=== PATIENT | male | born 1955 | race Caucasian/White ===

== ENCOUNTER → 2018-04-10 07:52 | Outpatient (CLI) | payer OTHER, SELFPAY ==
[2018-04-10 09:35] LABS: Cholesterol 102 mg/dL (140-199); HDL Cholesterol 58 mg/dL (40-60); LDL Cholesterol Calculated 37 mg/dL (<100); Triglycerides 34 mg/dL (35-150)
== END ==
PROVIDERS: Family Provider Registered Nurse Diabetes Educator; PCP Registered Nurse Diabetes Educator; Visit Provider Internal Medicine Cardiovascular Disease
DX: I25.10 Atherosclerotic heart disease of native coronary artery without angina pectoris (principal); I25.84 Coronary atherosclerosis due to calcified coronary lesion; Z13.220 Encounter for screening for lipoid disorders
CPT/HCPCS: 36415; 80061

== ENCOUNTER → 2019-01-09 11:03 | Outpatient (CLI) | payer OTHER, SELFPAY ==
[2019-01-09 12:25] LABS: Cholesterol 118 mg/dL (140-199); HDL Cholesterol 46 mg/dL (40-60); LDL Cholesterol Calculated 64 mg/dL (<100); Triglycerides 41 mg/dL (35-150)
== END ==
PROVIDERS: PCP Registered Nurse Diabetes Educator; Visit Provider Internal Medicine Cardiovascular Disease
DX: I25.10 Atherosclerotic heart disease of native coronary artery without angina pectoris (principal); I25.84 Coronary atherosclerosis due to calcified coronary lesion; R94.39 Abnormal result of other cardiovascular function study
CPT/HCPCS: 36415; 80061

== ENCOUNTER → 2020-06-29 09:05 | Outpatient (CLI) | payer OTHER, SELFPAY ==
[2020-06-29 11:57] LABS: COVID19 -Nasal RAPID Negative (Negative)
== END ==
PROVIDERS: PCP Registered Nurse Diabetes Educator; Visit Provider Specialist
DX: Z20.822 Contact with and (suspected) exposure to COVID-19 (principal)
CPT/HCPCS: 87635; C9803

== ENCOUNTER 2020-06-30 08:52 | Day surgery (SDC) | payer OTHER, SELFPAY ==
[2020-06-30 09:28] VITALS: BP 126/83; PULSE 73; RESP 13; TEMP 36.4; O2SAT 100; BMI 22.8
--- NOTE | 2020-06-30 10:21 | PM.PREOP ---
Pre-operative Note COVID-19 COVID-19 status: Negative Result date/Date tested (Pos, Neg/Pending): 06/29/20 Interval Note History & Physical reviewed/Exam performed by Physician: Yes Changes to H&P: No ASA Class (for procedural sedation): III
[2020-06-30] MEDS: LACTATED RINGERS 1,000 ML 200 ML IV (10:25)
[2020-06-30] MEDS: MIDAZOLAM 5 MG/5 ML VIAL IV (11:04)
[2020-06-30] MEDS: fentaNYL 250 MCG/5 ML INJ IV (11:04)
--- NOTE | 2020-06-30 11:24 | PM.OP.ENDO ---
Operative Date/Time/Diagnoses Date of procedure: 06/30/20 Time of procedure: 11:24 Pre-op diagnosis: Marked change in bowel habits Post-op diagnosis: same (Extensive sigmoid diverticulosis with stricture) Procedure & Clinicians Study performed: Colonoscopy Same procedure as scheduled: Yes Indications: Determine cause of new onset change in bowel habits Surgeon: Edy Bhardwaj Procedure Notes SCOAP/Timeout: Performed Procedure in detail: The patient was placed in the left lateral decubitus position and underwent IV sedation directed by the surgeon consisting of fentanyl and Versed. Digital exam was unremarkable. I could not feel his prostate.. The scope was inserted and advanced through the rectum into the sigmoid. There was extensive sigmoid diverticulosis with strictures and tortuosity making negotiating through this area very difficult. We slowly made our way through and reached the descending transverse and ascending colon. The patient had additional scattered diverticuli throughout the colon.. The cecum was reached identified by the ileocecal valve and the appendiceal opening. The scope was gradually brought out. No Polyps were found. The scope ultimately was retroflexed in the rectum. The appearance was normal. The scope was removed and the patient tolerated the procedure well. Scope withdrawal time: 10 minutes Sedation minutes: 49 Findings: diverticulosis (With stricture and tortuosity. No active inflammation seen however.) Specimen(s): none sent Complications: none Post-procedure Recommendations: Colonscopy in 10 years Follow up: as needed (Follow-up by phone) Disposition: PACU
[2020-06-30 11:26] VITALS: BP 116/71; PULSE 80; RESP 14; TEMP 36.7; O2SAT 99
[2020-06-30 11:30] VITALS: BP 121/72; PULSE 67; RESP 14; O2SAT 100
[2020-06-30 11:36] VITALS: BP 117/68; PULSE 71; RESP 16; TEMP 36.8; O2SAT 100
[2020-06-30 12:00] VITALS: BP 123/56; PULSE 61; RESP 17; TEMP 36.5; O2SAT 97
== END 2020-06-30 12:09 | disposition home or self-care (01) ==
PROVIDERS: Referring Provider Specialist; Visit Provider Specialist
PROC: 0DJD8ZZ Inspection of Lower Intestinal Tract, Via Natural or Artificial Opening Endoscopic (ICD-10-PCS; CPT 45378; principal; 2020-06-30 10:00)
DX: R19.4 Change in bowel habit (principal); I51.9 Heart disease, unspecified; I48.91 Unspecified atrial fibrillation; Z79.01 Long term (current) use of anticoagulants; I10 Essential (primary) hypertension; E78.5 Hyperlipidemia, unspecified; K57.30 Diverticulosis of large intestine without perforation or abscess without bleeding
CPT/HCPCS: 45378; 99152; 99153; J2250; J3010

== ENCOUNTER → 2020-07-31 10:07 | Outpatient (CLI) | payer OTHER, SELFPAY ==
[2020-08-05 04:36] LABS: Percent Free Testosterone 2.89 % (1.50-4.20); Testosterone Free 11.33 ng/dL (5.00-21.00); Testosterone Total 392.1 ng/dL (264.0-916.0)
== END ==
PROVIDERS: Referring Provider Internal Medicine Cardiovascular Disease; Visit Provider Internal Medicine Cardiovascular Disease
DX: R68.89 Other general symptoms and signs (principal)
CPT/HCPCS: 36415; 84402; 84403

== ENCOUNTER → 2020-09-02 09:01 | Outpatient (CLI) | payer OTHER, SELFPAY ==
[2020-09-02 09:41] LABS: COVID19 -Nasal RAPID Negative (Negative)
== END ==
PROVIDERS: Referring Provider Internal Medicine; Visit Provider Internal Medicine
DX: Z20.822 Contact with and (suspected) exposure to COVID-19 (principal)
CPT/HCPCS: 87635; C9803

== ENCOUNTER → 2020-09-03 08:49 | Outpatient (CLI) | payer OTHER, SELFPAY ==
--- NOTE | 2020-09-09 09:14 | PM.PFT.1 ---
Pulmonary Function Test Referral & Results Date Patient Seen: 09/03/20 Requesting provider: Beatrice Will Results: The spirometry demonstrates an FVC of 5.32 L which is 100% of predicted. The FEV1 was measured at 3.3 L which is 85% of predicted. The FEV1/FVC ratio was 64 which is 84% of predicted. Following the administration of bronchodilator there was an 18% improvement in FEV1 and a 103% improvement in FEF 25-75%. Lung volumes show an SVC of 5.82 L which is 110% of predicted. The diffusing capacity was measured at 38.96 which is 103% of predicted. The maximum voluntary ventilation was normal Interpretation: This study demonstrates probably normal spirometry although post bronchodilator there is evidence of benefit based on improvement in FEV1 and FEF 25-75% as above Diffusing capacity is also normal This study demonstrates probably normal pulmonary function
== END ==
PROVIDERS: Referring Provider Internal Medicine Cardiovascular Disease; Visit Provider Internal Medicine Cardiovascular Disease
DX: R06.09 Other forms of dyspnea (principal)
CPT/HCPCS: 94060; 94726; 94729

== ENCOUNTER → 2020-09-15 08:27 | Outpatient (CLI) | payer OTHER, SELFPAY ==
[2020-09-15 10:30] LABS: BUN Creatinine Ratio 20.7 (6-22); Blood Urea Nitrogen 18 mg/dL (9-20); Calcium 9.1 mg/dL (8.4-10.2); Carbon Dioxide 30 mmol/L (22-32); Chloride 101 mmol/L (98-107); Estimated Glomerular Filt Rate > 60.0 mL/min (>60); Glucose 96 mg/dL (80-110); HEMOLYSIS < 15 (0-50); Potassium 4.6 mmol/L (3.4-5.1); Sodium 136 mmol/L (137-145)
== END ==
PROVIDERS: Referring Provider Specialist; Visit Provider Specialist
DX: R39.9 Unspecified symptoms and signs involving the genitourinary system (principal)
CPT/HCPCS: 36415; 80048

== ENCOUNTER → 2020-12-01 15:18 | Outpatient (CLI) | payer MEDICARE, OTHER, SELFPAY ==
[2020-12-01 16:08] LABS: BUN Creatinine Ratio 23.3 (6-22); Blood Urea Nitrogen 21 mg/dL (9-20); Calcium 9.3 mg/dL (8.4-10.2); Carbon Dioxide 30 mmol/L (22-32); Chloride 102 mmol/L (98-107); Estimated Glomerular Filt Rate > 60.0 mL/min (>60); Glucose 94 mg/dL (80-110); HEMOLYSIS < 15 (0-50); Potassium 4.5 mmol/L (3.4-5.1); Sodium 138 mmol/L (137-145)
== END ==
PROVIDERS: PCP Registered Nurse Diabetes Educator; Referring Provider Nurse Practitioner; Visit Provider Nurse Practitioner
DX: R06.02 Shortness of breath (principal); I25.10 Atherosclerotic heart disease of native coronary artery without angina pectoris; I25.84 Coronary atherosclerosis due to calcified coronary lesion; R68.89 Other general symptoms and signs
CPT/HCPCS: 36415; 80048

== ENCOUNTER → 2020-12-02 07:59 | Outpatient (CLI) | payer MEDICARE, OTHER, SELFPAY ==
[2020-12-02 10:10] LABS: Cholesterol 126 mg/dL (140-199); HDL Cholesterol 55 mg/dL (40-60); LDL Cholesterol Calculated 60 mg/dL (<100); Triglycerides 54 mg/dL (35-150)
== END ==
PROVIDERS: PCP Registered Nurse Diabetes Educator; Referring Provider Nurse Practitioner; Visit Provider Nurse Practitioner
DX: R06.02 Shortness of breath (principal); I25.10 Atherosclerotic heart disease of native coronary artery without angina pectoris; I25.84 Coronary atherosclerosis due to calcified coronary lesion; R68.89 Other general symptoms and signs
CPT/HCPCS: 36415; 80061

== ENCOUNTER → 2021-04-12 08:44 | Outpatient (CLI) | payer MEDICARE, OTHER, SELFPAY ==
--- NOTE | 2021-04-12 08:47 | DI.RAD.S_ITS ---
PROCEDURE: XR FOOT RT MIN 3V INDICATIONS: R plantar heel pain, no injury TECHNIQUE: 3 views of the foot were acquired. COMPARISON: None. FINDINGS: Bones: No fractures or dislocations. Mild hallux valgus. No suspicious bony lesions. Soft tissues: No tibiotalar joint effusion. IMPRESSION: No significant abnormality. Dictated by: Mike Mcgrath M.D. on 04/12/2021 at 10:22 Approved by: Miek Mcgrath M.D. on 04/12/2021 at 10:23
== END ==
PROVIDERS: PCP Registered Nurse Diabetes Educator; Referring Provider Registered Nurse Diabetes Educator; Visit Provider Registered Nurse Diabetes Educator
DX: M79.671 Pain in right foot (principal)
CPT/HCPCS: 73630

== ENCOUNTER → 2021-11-04 15:54 | Outpatient (CLI) | payer MEDICARE, OTHER, SELFPAY ==
[2021-11-04 17:24] LABS: Influenza A - CEPHEID Flu A NEGATIVE (NEGATIVE); Influenza B - CEPHEID Flu B NEGATIVE (NEGATIVE)
[2021-11-04 17:26] LABS: COVID-19 CEPHEID PCR (VTM/NP) Negative (Negative)
== END ==
PROVIDERS: PCP Registered Nurse Diabetes Educator; Visit Provider Registered Nurse Diabetes Educator
DX: R05.9 Cough, unspecified (principal)
CPT/HCPCS: 0240U

== ENCOUNTER → 2021-11-04 16:21 | Outpatient (CLI) | payer MEDICARE, OTHER, SELFPAY ==
--- NOTE | 2021-11-04 16:27 | DI.RAD.S_ITS ---
PROCEDURE: XR CHEST 2V INDICATIONS: eval cough x 2 weeks/R/O pneumonia TECHNIQUE: 2 views of the chest were acquired. COMPARISON: [facility], CR, XR CHEST 2V, 09/14/2017, 12:07. FINDINGS: Surgical changes and devices: None. Lungs and pleura: Lungs are clear. No pleural effusions or pneumothorax. Mediastinum: Mediastinal contours are normal. Heart size is normal. Bones and chest wall: No suspicious bony abnormalities. Soft tissues appear unremarkable. IMPRESSION: No acute cardiopulmonary abnormality. Dictated by: Antelmo Dodge M.D. on 11/04/2021 at 17:01 Approved by: Antelmo Dodge M.D. on 11/04/2021 at 17:03
== END ==
PROVIDERS: PCP Registered Nurse Diabetes Educator; Referring Provider Registered Nurse Diabetes Educator; Visit Provider Registered Nurse Diabetes Educator
DX: R05.9 Cough, unspecified (principal)
CPT/HCPCS: 0240U; 71046

== ENCOUNTER → 2022-02-02 09:17 | Outpatient (CLI) | payer MEDICARE, OTHER, SELFPAY ==
[2022-02-02 12:01] LABS: Add Manual Diff / Slide Review NO; Basophils Absolute Auto 0 /uL (0-100); Basophils Percent Auto 0.7 % (0-2); Eosinophils Absolute Auto 300 /uL (0-450); Eosinophils Percent Auto 6.3 % (2-4); Hematocrit 40.3 % (41-53); Hemoglobin 14.1 g/dL (13.5-17.5); Lymphocytes Absolute Auto 1500 /uL (1100-4500); Lymphocytes Percent Auto 36.4 % (25-40); Mean Corpuscular Hemoglobin 33.8 PG (26-34); Mean Corpuscular Volume 96.5 fL (80-100); Monocytes Absolute Auto 300 /uL (0-900); Monocytes Percent Auto 7.9 % (3-14); Neutrophils Absolute Auto 2000 /uL (1500-7000); Neutrophils Percent Auto 48.7 % (50-75); Platelet Count 150 X10^3/uL (150-400); Red Blood Cell Count 4.18 X10^6/uL (4.5-5.9); Red Cell Distribution Width 12.9 % (11.6-14.8); White Blood Cell Count 4.1 X10^3/uL (4.5-11.0)
[2022-02-02 12:16] LABS: Alanine Aminotransferase 19 IU/L (<50); Albumin 4.4 g/dL (3.5-5.0); Albumin Globulin Ratio 1.8 (1.0-2.8); Alkaline Phosphatase 58 U/L (38-126); Aspartate Aminotransferase 22 IU/L (17-59); BUN Creatinine Ratio 18.8 (6-22); Bilirubin Total 0.8 mg/dL (0.2-1.3); Blood Urea Nitrogen 19 mg/dL (9-20); Calcium 9.2 mg/dL (8.4-10.2); Carbon Dioxide 31 mmol/L (22-32); Chloride 98 mmol/L (98-107); Cholesterol 133 mg/dL (140-199); Estimated Glomerular Filt Rate > 60 mL/min (>60); Globulin 2.4 g/dL (1.7-4.1); Glucose 87 mg/dL (80-110); HDL Cholesterol 54 mg/dL (40-60); HEMOLYSIS < 15 (0-50); LDL Cholesterol Calculated 71 mg/dL (<100); Potassium 4.7 mmol/L (3.4-5.1); Sodium 137 mmol/L (137-145); Total Protein 6.8 g/dL (6.3-8.2); Triglycerides 41 mg/dL (35-150)
[2022-02-02 12:46] LABS: Thyroid Stimulating Hormone 3.16 uIU/mL (0.47-4.68)
== END ==
PROVIDERS: PCP Registered Nurse Diabetes Educator; Referring Provider Nurse Practitioner Family; Visit Provider Nurse Practitioner Family
DX: I25.10 Atherosclerotic heart disease of native coronary artery without angina pectoris (principal); I48.0 Paroxysmal atrial fibrillation; I25.84 Coronary atherosclerosis due to calcified coronary lesion; R00.2 Palpitations
CPT/HCPCS: 36415; 80053; 80061; 83735; 84443; 85025

== ENCOUNTER → 2022-05-25 13:28 | Outpatient (CLI) | payer MEDICARE, OTHER, SELFPAY ==
[2022-05-25 14:53] LABS: Prostate Specific Antigen 0.619 ng/mL (0.10-4.00)
== END ==
PROVIDERS: PCP Registered Nurse Diabetes Educator; Referring Provider Specialist; Visit Provider Specialist
DX: N40.1 Benign prostatic hyperplasia with lower urinary tract symptoms (principal); R39.15 Urgency of urination
CPT/HCPCS: 36415; 84153

== ENCOUNTER → 2022-07-08 10:30 | Outpatient (CLI) | payer MEDICARE, OTHER, SELFPAY ==
--- NOTE | 2022-07-08 | DI.ECHO.S_ITS ---
[facility] +---------+ [facility] +---------+ : : [address] : : : : [id number] : : : : Phone: [phone]+ Echocardiogram Report + :Name: CLAUDETTE ORTEZ Study Date: 07/08/2022 Height: 74 in : :[facility] ReadingLocation: Weight: 175 lb : : Gender: Male BSA: 2.1 m2 : :: 1955 Age: 66 yrs BP: 123/74 mmHg: :Reason For Study: Aortic root dilatation : :Ordering Physician: MARY, : :SUNNI WEBSTER Performed By: Jennifer Schilling : :Referring: SUNNI HERNANDEZ : + Interpretation Summary The left ventricle is normal in size and wall thickness. The ejection fraction is estimated to be 55-60%. The right ventricle is borderline dilated. The right ventricular systolic function is normal. There is mild aortic regurgitation. There is trace tricuspid regurgitation. The right ventricular systolic pressure is estimated to be at least 36.9 mmHg based on an estimated right atrial pressure of 15 mm Hg. The aortic root is mildly dilated. Procedure: A two-dimensional transthoracic echocardiogram with color flow and Doppler was performed. The study quality was technically good. There has been no significant change since the previous study. The patient was in sinus bradycardia with heart rates between 58-62 bpm during the exam. Left Ventricle: The left ventricle is normal in size and wall thickness. There is no thrombus. The ejection fraction is estimated to be 55-60%. Septal motion is consistent with conduction abnormality. MV E/A: 1.2 Med Peak E' Jose Luis: 6.8 cm/sec E/E' med: 11.0. Right Ventricle: The right ventricle is borderline dilated. The right ventricular systolic function is normal. Atria: Borderline left atrial enlargement. The right atrium is mildly dilated. Chiari network (normal variant) is noted. There is no Doppler evidence for an interatrial shunt. Mitral Valve: There is mild mitral annular calcification. There is trace mitral regurgitation. Aortic Valve: The aortic valve is trileaflet. The aortic valve opens well. The aortic valve is slightly calcified. There is no aortic valve stenosis. There is mild aortic regurgitation. Tricuspid Valve: The tricuspid valve is normal in structure and function. The right ventricular systolic pressure is estimated to be at least 36.9 mmHg based on an estimated right atrial pressure of 15 mm Hg. There is trace tricuspid regurgitation. Pulmonic Valve: The pulmonic valve leaflets are thin and pliable; valve motion is normal. There is a trace or physiologic amount of pulmonic regurgitation. Great Vessels: The aortic root is mildly dilated. The ascending aorta is at the upper limits of normal in size. The pulmonary artery is normal size. The IVC is dilated (diameter is greater than 2.1 cm) and it collapses less than 50% with a sniff. This suggests a high right atrial pressure of 15 mm Hg. Pericardium/ Pleura There is no pericardial effusion. There is no pleural effusion. MMode/2D Measurements & Calculations LVIDd: 5.3 cm LVOT diam: 2.4 cm LVIDs: 3.6 cm Ao root diam: 4.5 cm FS: 31.7 % asc Aorta Diam: 3.7 cm EPSS: 0.43 cm IVSd: 0.85 cm LVPWd: 0.75 cm LV acosta. diameter/BSA (cm/m^2): 2.6 LV sys. diameter/BSA (cm/m^2): 1.8 LA A2 area: 25.4 cm2 RA long axis: 5.4 cm LA A4 area: 19.9 cm2 RA area: 22.7 cm2 LA length (vol): 5.0 cm RA vol: 80.3 ml LA vol: 86.4 ml RA : 39.1 ml/m2 LA vol index: 42.1 ml/m2 IVC diam: 2.4 cm RVD1 (basal): 4.3 cm TAPSE: 2.0 cm Doppler Measurements & Calculations Ao V2 max: 151.8 cm/sec LVOT Max Jose Luis: 103.9 cm/sec Ao V2 mean: 110.4 cm/sec LV V1 max P.3 mmHg Ao max P.2 mmHg LV V1 VTI: 21.3 cm Ao mean P.3 mmHg LORNA(I,D): 3.3 cm2 Ao V2 VTI: 28.7 cm LORNA(V,D): 3.0 cm2 sev ratio: 0.74 LORNA indexed to BSA (cm^2/m^2): 1.6 AI P1/2t: 492.1 msec AI dec slope: 282.3 cm/sec2 MV E max jose luis: 74.3 cm/sec TR max jose luis: 234.2 cm/sec MV A max jose luis: 62.4 cm/sec TR max P.9 mmHg MV E/A: 1.2 PA V2 max: 108.2 cm/sec Med Peak E' Jose Luis: 6.8 cm/sec PA V2 mean: 80.7 cm/sec E/E' med: 11.0 PA mean P.8 mmHg Lat Peak E' Jose Luis: 8.6 cm/sec E/E' lat: 8.6 E/e' average: 9.8 MV dec time: 0.23 sec MVA(VTI): 4.4 cm2 MV V2 mean: 42.5 cm/sec SV(LVOT): 94.4 ml MV mean P.85 mmHg MV V2 VTI: 21.5 cm Reading Physician:10:11 AM
== END ==
PROVIDERS: PCP Registered Nurse Diabetes Educator; Referring Provider Nurse Practitioner Family; Visit Provider Nurse Practitioner Family
DX: I77.810 Thoracic aortic ectasia (principal); Q23.1 Congenital insufficiency of aortic valve; I34.81 Nonrheumatic mitral (valve) annulus calcification
CPT/HCPCS: 93306

== ENCOUNTER → 2023-05-18 14:43 | Outpatient (CLI) | payer MEDICARE, OTHER, SELFPAY ==
[2023-05-18 16:17] LABS: Prostate Specific Antigen 1.19 ng/mL (0.10-4.00)
== END ==
PROVIDERS: PCP Registered Nurse Diabetes Educator; Referring Provider Specialist; Visit Provider Specialist
DX: R97.20 Elevated prostate specific antigen [PSA] (principal); R39.9 Unspecified symptoms and signs involving the genitourinary system
CPT/HCPCS: 36415; 84153

== ENCOUNTER → 2023-05-25 08:53 | Outpatient (CLI) | payer MEDICARE, OTHER, SELFPAY | PROVIDERS: PCP Registered Nurse Diabetes Educator; Visit Provider Specialist | DX: R33.9 Retention of urine, unspecified (principal); R39.9 Unspecified symptoms and signs involving the genitourinary system | CPT/HCPCS: 51798; 81002; 87077; 87086; 87147; 87186; 99214 ==

== ENCOUNTER → 2024-01-02 11:26 | Outpatient (CLI) | payer MEDICARE, OTHER, SELFPAY ==
[2024-01-02 13:31] LABS: Prostate Specific Antigen 0.552 ng/mL (0.10-4.00)
== END ==
PROVIDERS: PCP Registered Nurse Diabetes Educator; Referring Provider Specialist; Visit Provider Specialist
DX: N40.1 Benign prostatic hyperplasia with lower urinary tract symptoms (principal); N13.8 Other obstructive and reflux uropathy
CPT/HCPCS: 36415; 84153

== ENCOUNTER → 2024-01-16 11:13 | Outpatient (CLI) | payer MEDICARE, OTHER, SELFPAY ==
[2024-01-16 12:01] LABS: Hematocrit 40.9 % (41-53); Mean Corpuscular HGB Conc 34.3 % (30-36); Mean Corpuscular Hemoglobin 33.8 PG (26-34); Mean Corpuscular Volume 98.4 fL (80-100); Platelet Count 150 X10^3/uL (150-400); Red Blood Cell Count 4.15 X10^6/uL (4.5-5.9); White Blood Cell Count 5.1 X10^3/uL (4.5-11.0)
[2024-01-16 12:21] LABS: Alanine Aminotransferase 20 IU/L (<50); Albumin 4.1 g/dL (3.5-5.0); Albumin Globulin Ratio 1.6 (1.0-2.8); Alkaline Phosphatase 66 U/L (38-126); Aspartate Aminotransferase 24 IU/L (17-59); BUN Creatinine Ratio 16.2 (6-22); Bilirubin Total 0.9 mg/dL (0.2-1.3); Blood Urea Nitrogen 17 mg/dL (9-20); Calcium 9.2 mg/dL (8.4-10.2); Carbon Dioxide 32 mmol/L (22-32); Chloride 100 mmol/L (98-107); Cholesterol 120 mg/dL (140-199); Estimated Glomerular Filt Rate > 60 mL/min (>60); Globulin 2.5 g/dL (1.7-4.1); Glucose 89 mg/dL (80-110); HDL Cholesterol 57 mg/dL (40-60); HEMOLYSIS < 15 (0-50); LDL Cholesterol Calculated 52 mg/dL (<100); Magnesium 2.2 mg/dL (1.6-2.3); Potassium 4.1 mmol/L (3.4-5.1); Sodium 137 mmol/L (137-145); Total Protein 6.6 g/dL (6.3-8.2); Triglycerides 55 mg/dL (35-150)
[2024-01-16 14:16] LABS: Free T4, Direct Thyroxine 0.87 ng/dL (0.78-2.19)
[2024-01-16 14:30] LABS: Thyroid Stimulating Hormone 3.24 uIU/mL (0.47-4.68)
== END ==
PROVIDERS: PCP Registered Nurse Diabetes Educator; Referring Provider Nurse Practitioner; Visit Provider Nurse Practitioner
DX: I48.0 Paroxysmal atrial fibrillation (principal); E78.5 Hyperlipidemia, unspecified; R00.1 Bradycardia, unspecified
CPT/HCPCS: 36415; 80053; 80061; 83735; 84439; 84443; 85027

== ENCOUNTER → 2025-02-11 09:14 | Outpatient (CLI) | payer MEDICARE, OTHER, SELFPAY ==
--- NOTE | 2025-02-11 09:16 | DI.ECHO.S_ITS ---
[facility] +---------+ [facility] : : [address] : : [id number] : : Phone: [phone] Echocardiogram Report + + :Name: CLAUDETTE ORTEZ Study Date: 02/11/2025 Height: 74 in : :[facility] ReadingLocation: Weight: 180 lb : : Gender: Male BSA: 2.1 m2 : :: 1955 Age: 69 yrs BP: 129/79 mmHg: :Reason For Study: AORTA ENLARGEMENT, AORTIC REGURGITATION : :Ordering Physician: YUE, : :ROSARIO Performed By: Jennifer Perales : :Referring: ROSARIO TURNER : + + Interpretation Summary The left ventricle is normal in size and wall thickness. The left ventricular ejection fraction is normal. The ejection fraction is estimated to be 55-60%. No significant change in LVEF from the previous study The right ventricle is borderline dilated. The right ventricular systolic function is normal. There is mild mitral regurgitation. There is mild aortic regurgitation. Compared to the prior echo study, there has been no change in the severity of aortic regurgitation. There is mild tricuspid regurgitation. The right ventricular systolic pressure is estimated to be at least 30 mmHg based on an estimated right atrial pressure of 8 mm Hg. The aortic root is mildly dilated. 4.4 cm in diameter. Previously 4.5 cm. Procedure: A two-dimensional transthoracic echocardiogram with color flow and Doppler was performed. The study quality was technically adequate. Comparison is made with the echocardiogram of 07/08/2022. The patient was in sinus bradycardia with heart rates between 50-64 bpm during the exam. Left Ventricle: The left ventricle is normal in size and wall thickness. There is no thrombus. The ejection fraction is estimated to be 55-60%. The left ventricular ejection fraction is normal. There has been no significant change since the previous exam. There are no focal wall motion abnormalities. Normal diastolic function. Right Ventricle: The right ventricle is borderline dilated. There has been no significant change since the previous study. The right ventricular systolic function is normal. Atria: The left atrium is mildly dilated. There has been no significant change since the previous study. Right atrial size is normal. There is no Doppler evidence for an interatrial shunt. Mitral Valve: The mitral valve leaflets appear mildly thickened. There is systolic anterior motion of the chordal apparatus. There is mild mitral regurgitation. Aortic Valve: The aortic valve is trileaflet. The aortic valve opens well. The aortic valve is mildly calcified. There is no aortic valve stenosis. There is mild aortic regurgitation. Compared to the prior echo study, there has been no change in the severity of aortic regurgitation. Tricuspid Valve: The tricuspid valve is normal. There is mild tricuspid regurgitation. The right ventricular systolic pressure is estimated to be at least 30 mmHg based on an estimated right atrial pressure of 8 mm Hg. Pulmonic Valve: The pulmonic valve leaflets are thin and pliable; valve motion is normal. There is mild pulmonic regurgitation. Great Vessels: The aortic root is mildly dilated. The ascending aorta is at the upper limits of normal in size. The IVC is dilated (diameter is greater than 2.1 cm) yet it collapses greater than 50% with a sniff. This suggests a right atrial pressure of 8 mm Hg. Pericardium/ Pleura There is no pericardial effusion. There is no pleural effusion. MMode/2D Measurements & Calculations LVIDd: 5.0 cm LVOT diam: 2.4 cm LVIDs: 3.4 cm Ao root diam: 4.4 cm FS: 33.0 % asc Aorta Diam: 3.7 cm EPSS: 0.53 cm Ao Arch Diam (Prox Trans): 3.0 cm IVSd: 1.0 cm LVPWd: 0.65 cm LV acosta. diameter/BSA (cm/m^2): 2.4 LV sys. diameter/BSA (cm/m^2): 1.6 LA A2 area: 24.7 cm2 RA long axis: 5.0 cm LA A4 area: 19.9 cm2 RA area: 17.5 cm2 LA length (vol): 5.7 cm RA vol: 52.4 ml LA vol: 73.3 ml RA : 25.2 ml/m2 LA vol index: 35.3 ml/m2 IVC diam: 2.3 cm RVD1 (basal): 4.1 cm RVD2 (mid): 3.8 cm TAPSE: 2.4 cm Doppler Measurements & Calculations Ao V2 max: 141.4 cm/sec LVOT Max Jose Luis: 84.9 cm/sec Ao V2 mean: 97.4 cm/sec LV V1 max P.9 mmHg Ao max P.0 mmHg LV V1 VTI: 20.5 cm Ao mean P.5 mmHg LORNA(I,D): 3.0 cm2 Ao V2 VTI: 30.9 cm LORNA(V,D): 2.7 cm2 sev ratio: 0.66 LORNA indexed to BSA (cm^2/m^2): 1.4 AI P1/2t: 578.1 msec AI dec slope: 216.3 cm/sec2 MV E max jose luis: 67.0 cm/sec TR max jose luis: 236.1 cm/sec MV A max jose luis: 44.3 cm/sec TR max P.3 mmHg MV E/A: 1.5 PA V2 max: 109.4 cm/sec Med Peak E' Jose Luis: 12.5 cm/sec PA V2 mean: 78.0 cm/sec E/E' med: 5.3 PA mean P.7 mmHg Lat Peak E' Jose Luis: 16.4 cm/sec PA pr(Accel): 9.6 mmHg E/E' lat: 4.1 E/e' average: 4.7 MV dec time: 0.24 sec SV(LVOT): 92.3 ml Reading Physician:01:42 PM
== END ==
PROVIDERS: PCP Registered Nurse Diabetes Educator; Referring Provider Internal Medicine Cardiovascular Disease; Visit Provider Internal Medicine Cardiovascular Disease
DX: I08.3 Combined rheumatic disorders of mitral, aortic and tricuspid valves (principal); I77.810 Thoracic aortic ectasia
CPT/HCPCS: 93306